=== PATIENT | female | born 1940 | race Caucasian/White ===

== ENCOUNTER → 2023-11-21 11:37 | Outpatient (REF) | payer MEDICARE, SELFPAY | LOC: DHCBC/DCA 11:37 | PROVIDERS: ATTENDING PHYSICIAN Internal Medicine Cardiovascular Disease; FAMILY PHYSICIAN Internal Medicine | DX: R06.02 Shortness of breath (principal) | CPT/HCPCS: 78452; 93017; A9500; J2785 ==